=== PATIENT | female | born 2000 | race Two or more races ===

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

== ENCOUNTER 2023-03-16 11:50 | Emergency (ER) | payer OTHER ==
[~2023-03-16] VITALS: Ht 152.4 cm; Wt 45.4 kg
[~2023-03-16 11:50] MED LIST: DIFLUCAN150 MG PO; METRONIDAZOLE500 MG PO
[2023-03-16 12:09] VITALS: O2SAT 100
== END 2023-03-16 13:30 | disposition home or self-care (01) ==
LOC: ER 11:56
DX: R50.9 Fever, unspecified (principal); J02.9 Acute pharyngitis, unspecified
CPT/HCPCS: 83518; 87070; 99283